=== PATIENT | male | born 1960 | race African-American/Black ===

== ENCOUNTER 2018-12-14 12:16 | Emergency (ER) | payer OTHER, MEDICAID ==
[~2018-12-14] VITALS: Ht 182.9 cm; Wt 70.0 kg
[2018-12-14 13:08] LABS: BASOPHILS % 0.7 % (0.0-2.0); HEMATOCRIT. 39.1 % (42.0-52.0); HEMOGLOBIN. 13.4 g/dL (14.0-18.0); LYMPHOCYTES % 47.6 % (20.0-50.0); MEAN CORPUSCULAR HEMOGLOBIN 27.4 pg (28.0-32.0); MEAN CORPUSCULAR VOLUME 79.7 fL (80.0-94.0); MEAN PLATELET VOLUME 7.4 fl (7.4-10.4); MONOCYTES % 9.7 % (2.0-8.0); PLATELET 205 x1000/uL (130-400); RED BLOOD CELL COUNT 4.91 mill/uL (4.7-6.1); RED CELL DISTRIBUTION WIDTH 14.7 % (11.6-14.6)
[2018-12-14 13:14] LABS: CHLORIDE 106 mEq/L (98-107)
[2018-12-14 15:13] VITALS: BP 155/83
== END 2018-12-14 16:14 | disposition home or self-care (01) ==
LOC: ER 12:16 → CANBEDREQ 16:26
DX: I31.9 Disease of pericardium, unspecified (principal); R07.89 Other chest pain; F17.200 Nicotine dependence, unspecified, uncomplicated; I10 Essential (primary) hypertension; Z88.0 Allergy status to penicillin
CPT/HCPCS: 36415; 71045; 83605; 83880; 84484; 93005; 99284